=== PATIENT | female | born 1965 | race African-American/Black ===

== ENCOUNTER 2016-10-04 21:14 | Emergency (ER) | payer OTHER ==
[~2016-10-04 21:14] MED LIST: ALBUAER3 INH; CYCL1TAB29 PO; GABA100C4 PO; HYDR-4107 PO; LISI20TA PO; PRED20 PO; VENTAER INH; ZITHTAB PO
[2016-10-04 21:19] VITALS: BP 182/84; PULSE 128; RESP 24; TEMP 99.8; O2SAT 99
== END 2016-10-04 21:50 | disposition left against medical advice (07) ==
LOC: NED 21:14
DX: F41.9 Anxiety disorder, unspecified (principal)

== ENCOUNTER 2017-01-30 17:44 | Emergency (ER) | payer OTHER ==
[~2017-01-30] VITALS: Ht 157.5 cm; Wt 109.0 kg
[2017-01-30 17:48] VITALS: BP 156/86; PULSE 94; RESP 14; TEMP 98.2; O2SAT 98
--- NOTE | 2017-01-30 18:17 | PD ---
Physical Exam Date Seen by Provider: Jan 30, 2017 Time Seen by Provider: 18:16 Narrative 51 yo female here for abscesses. History of hydradenitis. Has had I&D before. tried to see PCP but they couldnt fit her in. Pain is 7/10. Has abscess. No fevers, chills or sweats. Vitals stable in triage. Awaiting bed placement. Data Data Last Documented VS Vital Signs Date Time Temp Pulse Resp B/P (MAP) Pulse Ox O2 Delivery O2 Flow Rate FiO2 01/30/17 17:48 98.2 94 14 156/86 (109) 98 MDM Medical Record Reviewed: Yes Supervised Visit with GULSHAN: Dane Joseph Jan 30, 2017 18:17
[2017-01-30] MEDS ORDERED: CLINDAMYCIN PHOS 600 MG/4 ML VIAL IM ONE (18:30)
[2017-01-30] MEDS ORDERED: CLIN150 PO (18:36)
--- NOTE | 2017-01-30 18:36 | PD ---
HPI Chief Complaint: Skin Problem Time Seen by Provider: 18:27 Travel History International Travel<30 days: No Contact w/Intl Traveler<30days: No Traveled to known affect area: No History of Present Illness HPI 51-year-old Afro-Portuguese female presents the emergency department with recurrent ingrown hair versus abscess to the axilla bilaterally for the past couple of days. Patient has history of hydroadenitis requiring surgical excision. Patient is followed by Dr. Sanabira. She states she went to his office today, but they were unable to fit her in. She states that the one on the right is bigger than the one on the left, but she is trying to "catch them early". She has no fever, chills, or drainage from these areas. Pain is approximately a 7 out of 10. She is allergic to sulfa, vancomycin, and penicillin. PFSH Past Medical History Hx Anticoagulant Therapy: No Anemia: Yes Blood Disorders: Yes (SICKLE CELL TRAIT) Bipolar Disorder: Yes Anxiety: Yes Depression: Yes Heart Rhythm Problems: No Cancer: No Cardiac Catheterization: No Cardiovascular Problems: Yes High Cholesterol: No Chemotherapy: No Congestive Heart Failure: No Cerebrovascular Accident: No Diabetes: No Diminished Hearing: No Endocrine: No Gastrointestinal Disorders: No Genitourinary: No Hypertension: Yes Immune Disorder: No Musculoskeletal: No Neurologic: No Psychiatric: Yes Reproductive: Yes Respiratory: Yes (SLEEP APNEA CPAP) Radiation Therapy: No Renal Failure: No Sleep Apnea: Yes (HOME CPAP) Thyroid Disease: Yes PNEUMOCCOCAL Vaccine (Year): 2 Menopausal: Yes : 15 Para: 6 Miscarriage: 4 : 5 Ovarian Cysts: No Tubal Ligation: Yes Past Surgical History Abdominal Surgery: No AICD: No Arteriovenous Shunt: No Cardiac Surgery: No Coronary Artery Bypass Graft: No Ear Surgery: No Endocrine Surgery: No Eye Surgery: No Genitourinary Surgery: No Gynecologic Surgery: Yes (HYSTERECTOMY) Hysterectomy: Yes Insulin Pump: No Joint Replacement: No Oral Surgery: Yes Pacemaker: No Thoracic Surgery: No Other Surgery: Yes (BENIGN TUMOR LEFT BREAST, BILAT AXILLARY LYMPH NODE REMOVAL ) Social History Alcohol Use: No Tobacco Use: Yes (05/09 PPD) Substance Use: No Allergies-Medications (Allergen,Severity, Reaction): Coded Allergies: Sulfa (Sulfonamide Antibiotics) (Unverified Allergy, Severe, SOB, 01/30/17) penicillin G (Unverified Allergy, Severe, ITCHING/RASH, 01/30/17) vancomycin (Unverified Allergy, Mild, HIVES, 01/30/17) Reported Meds & Prescriptions Reported Meds & Active Scripts Active Ventolin Hfa 18 GM Inh (Albuterol Sulfate) 90 Mcg/Act Aer 1 Puff INH Q4H PRN Zithromax Z-Remigio (Azithromycin) 250 Mg Dspk 250 Mg PO DIRECTED 500 MG (2 tabs) day 1, then 1 tab days 2-5. Prednisone 20 Mg Tab 20 Mg PO DAILY 4 Days Reported Gabapentin 100 Mg Cap 100 Mg PO TID Lisinopril-Hctz 20-12.5 Mg Tab 1 Tab PO DAILY Hydrocodone-Acetaminophen 5-300 Mg Tab 1 Tab PO Q6H PRN Flexeril (Cyclobenzaprine HCl) 10 Mg Tab 10 Mg PO TID Proair Hfa 8.5 GM Inh (Albuterol Sulfate) 90 Mcg/Act Aer 1 Puff INH Q4H PRN 108 mcg/actuation Review of Systems Except as stated in HPI: all other systems reviewed are Neg General / Constitutional: No: Fever Eyes: No: Visual changes HENT: No: Headaches Cardiovascular: No: Chest Pain or Discomfort Respiratory: No: Shortness of Breath Gastrointestinal: No: Abdominal Pain Genitourinary: No: Dysuria Musculoskeletal: No: Pain Skin: Positive Lesions (see history present illness), No Rash Neurologic: No: Weakness Psychiatric: No: Depression Endocrine: No: Polydipsia Hematologic/Lymphatic: No: Easy Bruising Physical Exam Narrative GENERAL: Patient appears in no acute distress. SKIN: Warm and dry. Normal color. Normal turgor. Patient has an approximate Stevinson sized, tender, erythematous, indurated area in the center of the right axilla, and a pea-sized tender indurated lesion in the left axilla. Both of these areas are indurated but do not have obvious abscess or pointing at this time. HEAD: Atraumatic. Normocephalic. EYES: Pupils equal and round. No scleral icterus. No injection or drainage. ENT: No nasal bleeding or discharge. Mucous membranes pink and moist. Pharynx is clear. Airway is patent. NECK: Trachea midline. Supple and nontender. CARDIOVASCULAR: Regular rate and rhythm. RESPIRATORY: No accessory muscle use. Clear to auscultation. Breath sounds equal bilaterally. MUSCULOSKELETAL: Extremities without clubbing, cyanosis, or edema. No obvious deformities. NEUROLOGICAL: Awake and alert. No obvious cranial nerve deficits. Motor grossly within normal limits. Five out of 5 muscle strength in the arms and legs. Normal speech. PSYCHIATRIC: Appropriate mood and affect; insight and judgment normal. Data Data Last Documented VS Vital Signs Date Time Temp Pulse Resp B/P (MAP) Pulse Ox O2 Delivery O2 Flow Rate FiO2 01/30/17 17:48 98.2 94 14 156/86 (109) 98 Orders Orders Clindamycin Inj (Cleocin Inj) (01/30/17 18:30) [facility] Medical Decision Making Medical Screen Exam Complete: Yes Emergency Medical Condition: Yes Medical Record Reviewed: Yes Differential Diagnosis Axillary cellulitis. Hidradenitis. Ingrown hair. Early abscess. Narrative Course Patient is given clindamycin 600 mg IM now. Patient is continued on clindamycin 300 mg 4 times a day 7 days Patient is to continue her normal prescribed medications. Patient is to use hot compresses to the area frequently as discussed. Patient is to follow with her doctor as discussed. Patient can return to emergency department if symptoms worsen as discussed. Diagnosis Primary Impression: Hidradenitis axillaris Referrals: Primary Care Physician call for appointment Patient Instructions: General Instructions, Hidradenitis Suppurativa (ED) Additional Instructions: Patient is given clindamycin 600 mg IM now. Patient is continued on clindamycin 300 mg 4 times a day 7 days Patient is to continue her normal prescribed medications. Patient is to use hot compresses to the area frequently as discussed. Patient is to follow with her doctor as discussed. Patient can return to emergency department if symptoms worsen as discussed. Med/Other Pt SpecificInfo: Prescription(s) given Disposition: 01 DISCHARGE HOME Condition: Stable Deion Lafleur Jan 30, 2017 18:36
== END 2017-01-30 19:24 | disposition home or self-care (01) ==
LOC: NEPK 17:44
DX: L73.2 Hidradenitis suppurativa (principal); I10 Essential (primary) hypertension; D57.3 Sickle-cell trait
CPT/HCPCS: 96372

== ENCOUNTER 2017-06-05 20:55 | Emergency (ER) | payer OTHER ==
[~2017-06-05] VITALS: Ht 157.5 cm; Wt 109.1 kg
[~2017-06-05 20:55] MED LIST changes: +CLIN150 PO; +CYCL10TA PO; -CYCL1TAB29 PO
[2017-06-05 20:56] VITALS: BP 180/90; PULSE 96; RESP 16; TEMP 98.6; O2SAT 98
--- NOTE | 2017-06-05 22:18 | PD ---
HPI Chief Complaint: Musculoskeletal Complaint Time Seen by Provider: 22:05 Travel History International Travel<30 days: No Contact w/Intl Traveler<30days: No Traveled to known affect area: No History of Present Illness HPI 52-year-old black female presents to emergency Department with complaints of a tender lump to the inner aspect of her upper arm which she noticed today. She denies any trauma. No recent illness. She denies any skin lesions or sores. She states that she's had a history of hidradenitis and had surgery done a few years ago and has not had any problems. Symptoms are mild. She denies any breast complaints. History Past Medical Histgory Narrative Medical Hypertension, hidradenitis Tetanus Vaccination: < 5 Years Menopausal: Yes Hx Cancer: No Hx Chemotherapy: No Hx Radiation Therapy: No Past Surgical History Narrative Surgical Excision of the tissue of the arm pits for hidradenitis Social History Alcohol Use: No Tobacco Use: Yes (1/2 PPD) Allergies-Medications (Allergen,Severity, Reaction): Coded Allergies: Sulfa (Sulfonamide Antibiotics) (Unverified Allergy, Severe, SOB, 01/30/17) penicillin G (Unverified Allergy, Severe, ITCHING/RASH, 01/30/17) vancomycin (Unverified Allergy, Mild, HIVES, 01/30/17) Reported Meds & Prescriptions Reported Meds & Active Scripts Active Cleocin (Clindamycin HCl) 150 Mg Cap 300 Mg PO Q6H 7 Days Ventolin Hfa 18 GM Inh (Albuterol Sulfate) 90 Mcg/Act Aer 1 Puff INH Q4H PRN Zithromax Z-Remigio (Azithromycin) 250 Mg Dspk 250 Mg PO DIRECTED 500 MG (2 tabs) day 1, then 1 tab days 2-5. Prednisone 20 Mg Tab 20 Mg PO DAILY 4 Days Reported Gabapentin 100 Mg Cap 100 Mg PO TID Lisinopril-Hctz 20-12.5 Mg Tab 1 Tab PO DAILY Hydrocodone-Acetaminophen 5-300 Mg Tab 1 Tab PO Q6H PRN Flexeril (Cyclobenzaprine HCl) 10 Mg Tab 10 Mg PO TID Proair Hfa 8.5 GM Inh (Albuterol Sulfate) 90 Mcg/Act Aer 1 Puff INH Q4H PRN 108 mcg/actuation Review of Systems Except as stated in HPI: all other systems reviewed are Neg HENT: No: Sore Throat Cardiovascular: No: Chest Pain or Discomfort Respiratory: No: Cough, Shortness of Breath Skin: Positive Lumps (right medial elbow), No Rash, No Itching, No Change in Pigmentation, No Change in nails, No Lesions, No Breast Lumps, No Breast Tenderness, No Breast Swelling Physical Exam Narrative GENERAL: This is a well-nourished, well-developed patient, in no apparent distress. SKIN: No rashes, ecchymoses or lesions. Warm and dry. HEAD: Atraumatic. Normocephalic. EYES: PERRL, EOMI, no discharge or injection. No scleral icterus. EARS: Clear NOSE: Nasal turbinates appear normal. THROAT: Mucosa pink and moist. Airway patent. NECK: Trachea midline. supple, moves head freely. LUNGS: Clear to auscultation. CV: Regular in rhythm. ABDOMEN: Soft nontender. EXT: No clubbing cyanosis or edema. Patient has a tender right epitrochlear lymph node Data Data Last Documented VS Vital Signs Date Time Temp Pulse Resp B/P (MAP) Pulse Ox O2 Delivery O2 Flow Rate FiO2 06/05/17 20:56 98.6 96 16 180/90 (120) 98 Room Air MDM Medical Screen Exam Complete: Yes Emergency Medical Condition: No Differential Diagnosis MDM: High Differential diagnoses: Abscess, folliculitis, cellulitis, lymphangitis, abrasion, contact dermatitis, adenopathy Narrative Course A medical screening exam was performed: At the time of evaluation the presenting medical condition was determined not to be of an emergent nature. The patient was given the option of receiving additional care, but declined. Patient was given options for additional community resources from which to obtain care. The Patient Has Been advised to seek medical attention for their presenting complaint. The patient has been advised to return to the ER at any time if an emergent condition develops. Primary Impression: Encounter for medical screening examination Condition: Stable Huy Olivas Jun 05, 2017 22:18
[2017-06-05 22:24] VITALS: BP 165/88
== END 2017-06-05 22:45 | disposition left against medical advice (07) ==
LOC: NEPK 20:55
DX: Z76.89 Persons encountering health services in other specified circumstances (principal); I10 Essential (primary) hypertension; F17.210 Nicotine dependence, cigarettes, uncomplicated; Z88.0 Allergy status to penicillin; Z88.2 Allergy status to sulfonamides; Z88.1 Allergy status to other antibiotic agents; Z79.899 Other long term (current) drug therapy
CPT/HCPCS: 99281

== ENCOUNTER 2017-10-13 15:47 | Emergency (ER) | payer OTHER ==
[~2017-10-13] VITALS: Ht 157.5 cm; Wt 110.0 kg
[2017-10-13 15:50] VITALS: BP 108/71; PULSE 99; RESP 16; TEMP 98.2; O2SAT 100
[2017-10-13] MEDS ORDERED: SODIUM CHLOR 0.9% 1000 ML INJ 1,000 ML IV ONE ×2 (16:13→18:15)
[2017-10-13] MEDS ORDERED: SODIUM CHLORIDE 0.9% FLUSH 10 ML FLUSH IVF PRN (16:15)
[2017-10-13 16:30] VITALS: O2SAT 98
[2017-10-13 16:40] LABS: AUTOMATED NEUTROPHIL # 4.4 TH/MM3 (1.8-7.7); BASOPHIL # 0.1 TH/MM3 (0-0.2); BASOPHIL % 1.2 % (0.0-2.0); EOSINOPHIL # 0.3 TH/MM3 (0-0.4); EOSINOPHIL % 3.5 % (0.0-4.0); HEMATOCRIT 41.6 % (35.0-46.0); HEMOGLOBIN 13.9 GM/DL (11.6-15.3); LYMPH % 37.3 % (9.0-44.0); LYMPHOCYTE # 3.3 TH/MM3 (1.0-4.8); MEAN CORPUSCULAR HEMOGLOBIN 24.7 PG (27.0-34.0); MEAN CORPUSCULAR HGB CONC 33.4 % (32.0-36.0); MEAN PLATELET VOLUME 9.5 FL (7.0-11.0); MONO % 7.5 % (0.0-8.0); MONOCYTE # 0.7 TH/MM3 (0-0.9); NEUT % 50.5 % (16.0-70.0); PLATELET COUNT 274 TH/MM3 (150-450); RED BLOOD COUNT 5.62 MIL/MM3 (4.00-5.30); RED CELL DISTRIBUTION WIDTH 16.6 % (11.6-17.2); WHITE BLOOD COUNT 8.7 TH/MM3 (4.0-11.0)
[2017-10-13] MEDS ORDERED: METOCLOPRAMIDE HCL 10 MG/2 ML VIAL IVP ONE (16:45)
[2017-10-13] MEDS ORDERED: diphenhydrAMINE HCL 50 MG/ML VIAL IVP ONE (16:45)
[2017-10-13 16:49] VITALS: BP_SYST 85; BP_SYST 88; BP_DIAS 53; BP_DIAS 55; BP_DIAS 56
--- NOTE | 2017-10-13 17:01 | RADRPT ---
EXAM DATE: 10/13/2017 4:56 PM EDT AGE/SEX: 52 years / Female INDICATIONS: Cephalgia today. CLINICAL DATA: This is the patient's initial encounter. Patient reports that signs and symptoms have been present for 1 day and indicates a pain score of 8/10. MEDICAL/SURGICAL HISTORY: Hypertension. Hysterectomy. RADIATION DOSE: 56.35 CTDI (mGy) COMPARISON: No prior exams available for comparison. TECHNIQUE: CT of the head without contrast. Using automated exposure control and adjustment of the mA and/or kV according to patient size, radiation dose was kept as low as reasonably achievable to ob tain optimal diagnostic quality images. FINDINGS: Cerebrum: The ventricles are normal for age. No evidence of midline shift, mass lesion, hemorrhage or acute infarction. No extraaxial fluid collections are seen. Posterior Fossa: The cerebellum and brainstem are intact. The 4th ventricle is midline. The cerebe llopontine angle is unremarkable. Extracranial: The visualized portion of the orbits is intact. Skull: The calvaria is intact. No evidence of skull fracture. CONCLUSION: 1. Negative CT Head non contrast. Electronically signed by: Joel Diallo MD 10/13/2017 5:00 PM EDT
[2017-10-13 17:10] LABS: BICARBONATE 25.4 MEQ/L (21.0-32.0); BLOOD UREA NITROGEN 14 MG/DL (7-18); CALCIUM 9.5 MG/DL (8.5-10.1); CHLORIDE 106 MEQ/L (98-107); CREATININE 1.36 MG/DL (0.50-1.00); GLOMERULAR FILTRATION RATE 49 ML/MIN (>89); GLUCOSE,RANDOM 125 MG/DL (74-106); SODIUM (NA) 141 MEQ/L (136-145); TROPONIN I LESS THAN 0.02 NG/ML (0.02-0.05)
--- NOTE | 2017-10-13 17:45 | RADRPT ---
EXAM DATE: 10/13/2017 4:27 PM EDT AGE/SEX: 52 years / Female INDICATIONS: Dizziness and shortness of breath. CLINICAL DATA: This is the patient's initial encounter. Patient reports that signs and symptoms have been present for 1 day and indicates a pain score of 0/10. MEDICAL/SURGICAL HISTORY: None. None. COMPARISON: [facility] [place], CHEST SINGLE AP, 04/14/2016. . FINDINGS: A single AP view of the chest demonstrates the lungs to be symmetrically aerated without evidence of mass, infiltrate or effusion. The cardiomediastinal contours are unremarkable. Osseous structures a re intact. CONCLUSION: No acute disease. Electronically signed by: Joel Diallo MD 10/13/2017 5:44 PM EDT
[2017-10-13 18:02] VITALS: BP 91/55; PULSE 85; RESP 18; O2SAT 98
[2017-10-13] MEDS ORDERED: KETOROLAC TROMETHAMINE 30 MG/ML (IVP) VIAL IV PUSH ONE (18:15)
[2017-10-13 18:39] LABS: AMORPHOUS SEDIMENT, URINE RARE; BACTERIA, URINE FEW /hpf; BLOOD, URINE NEG (NEG); GLUCOSE,URINE NEG (NEG); HYALINE CAST, URINE 81 /lpf (RARE); KETONE, URINE TRACE mg/dL (NEG); MUCUS URINE FEW /lpf (OCC); NITRITE,URINE NEG (NEG); PH, URINE 5.5 (5.0-8.5); SQUAMOUS EPITHELIAL CELL URINE 11 /hpf (0-5); URINE COLOR YELLOW (YELLW/STRAW); URINE LEUKOCYTE ESTERASE MOD (NEG)
[2017-10-13 18:41] LABS: BILIRUBIN, URINE NEG (NEG)
--- NOTE | 2017-10-13 18:58 | PD ---
HPI Chief Complaint: Dizziness Time Seen by Provider: 16:04 Travel History International Travel<30 days: No Contact w/Intl Traveler<30days: No Traveled to known affect area: No History of Present Illness HPI Patient comes to the emergency department complaining of migraine headache and dizziness. Patient reports migraines she woke up with this morning behind her eyes and radiates to the top of her head. Patient reports leaning forward or standing up up makes the headache worse. Patient reports that she took her migraine medication along with her blood pressure medication and became dizzy approximately 2 hours later. Patient denies any nausea, vomiting, chest pain, or shortness of breath abdominal pain, loss change of bowel bladder, or weakness anywhere. Patient reports this does not feel like her normal headaches but is not the worst headache of her life. Patient reports associated photophobia. PFSH Past Medical History Hx Anticoagulant Therapy: No Anemia: Yes Blood Disorders: Yes (SICKLE CELL TRAIT) Bipolar Disorder: Yes Anxiety: Yes Depression: Yes Heart Rhythm Problems: No Cancer: No Cardiac Catheterization: No Cardiovascular Problems: Yes (HTN) High Cholesterol: No Chemotherapy: No Congestive Heart Failure: No Cerebrovascular Accident: No Diabetes: No Diminished Hearing: No Endocrine: No Gastrointestinal Disorders: No Genitourinary: No Hypertension: Yes Immune Disorder: No Musculoskeletal: No Neurologic: No Psychiatric: Yes Reproductive: Yes Respiratory: Yes (asthma) Radiation Therapy: No Renal Failure: No Sleep Apnea: Yes (HOME CPAP) Thyroid Disease: Yes Tetanus Vaccination: > 5 Years Influenza Vaccination: No PNEUMOCCOCAL Vaccine (Year): 2 ?: Not Menopausal: Yes : 15 Para: 6 Miscarriage: 4 : 5 Ovarian Cysts: No Tubal Ligation: Yes Past Surgical History Abdominal Surgery: No AICD: No Arteriovenous Shunt: No Cardiac Surgery: No Cholecystectomy: Yes Coronary Artery Bypass Graft: No Ear Surgery: No Endocrine Surgery: No Eye Surgery: No Genitourinary Surgery: No Gynecologic Surgery: Yes (HYSTERECTOMY) Hysterectomy: Yes Insulin Pump: No Joint Replacement: No Oral Surgery: Yes Pacemaker: No Thoracic Surgery: No Other Surgery: Yes (BENIGN TUMOR LEFT BREAST, BILAT AXILLARY LYMPH NODE REMOVAL ) Family History Family Myocardial Infarction: Yes (SISTER AGE 54 WITH [place] ) Social History Alcohol Use: No Tobacco Use: Yes (1/2 PPD) Substance Use: No Allergies-Medications (Allergen,Severity, Reaction): Coded Allergies: Sulfa (Sulfonamide Antibiotics) (Unverified Allergy, Severe, SOB, 01/30/17) penicillin G (Unverified Allergy, Severe, ITCHING/RASH, 01/30/17) vancomycin (Unverified Allergy, Mild, HIVES, 01/30/17) Reported Meds & Prescriptions Reported Meds & Active Scripts Active Cleocin (Clindamycin HCl) 150 Mg Cap 300 Mg PO Q6H 7 Days Ventolin Hfa 18 GM Inh (Albuterol Sulfate) 90 Mcg/Act Aer 1 Puff INH Q4H PRN Zithromax Z-Remigio (Azithromycin) 250 Mg Dspk 250 Mg PO DIRECTED 500 MG (2 tabs) day 1, then 1 tab days 2-5. Prednisone 20 Mg Tab 20 Mg PO DAILY 4 Days Reported Gabapentin 100 Mg Cap 100 Mg PO TID Lisinopril-Hctz 20-12.5 Mg Tab 1 Tab PO DAILY Hydrocodone-Acetaminophen 5-300 Mg Tab 1 Tab PO Q6H PRN Flexeril (Cyclobenzaprine HCl) 10 Mg Tab 10 Mg PO TID Proair Hfa 8.5 GM Inh (Albuterol Sulfate) 90 Mcg/Act Aer 1 Puff INH Q4H PRN 108 mcg/actuation Review of Systems Except as stated in HPI: all other systems reviewed are Neg Physical Exam Narrative GENERAL: Well-developed, overly nourished, in no acute distress, and non-ill appearing. SKIN: Focused skin assessment warm and dry. HEAD: Atraumatic. Normocephalic. EYES: Pupils equal and round. EOMI. No scleral icterus. No injection or drainage. ENT: No nasal bleeding or discharge. Mucous membranes pink and moist. NECK: Trachea midline. Supple. No nuclear rigidity. CARDIOVASCULAR: Regular rate and rhythm. No murmur appreciated. RESPIRATORY: No accessory muscle use. No respiratory distress. Clear to auscultation. Breath sounds equal bilaterally. MUSCULOSKELETAL: No obvious deformities. No clubbing. No cyanosis. No edema. Full range of motion. NEUROLOGICAL: Awake and alert. No obvious cranial nerve deficits. Motor grossly within normal limits. Normal speech. No pronator drift. Electromechanical Inspector strength equal bilaterally. Normal gait. Normal finger to nose bilaterally, no dysdiadochokinesia, and normal heel-colon exam bilaterally PSYCHIATRIC: Appropriate mood and affect; insight and judgment normal. Data Data Last Documented VS Vital Signs Date Time Temp Pulse Resp B/P (MAP) Pulse Ox O2 Delivery O2 Flow Rate FiO2 10/13/17 19:41 10/13/17 18:02 85 18 98 Room Air 10/13/17 15:50 98.2 Orders Orders Electrocardiogram (10/13/17 16:13) Basic Metabolic Panel (Bmp) (10/13/17 16:13) Complete Blood Count With Diff (10/13/17 16:13) Magnesium (Mg) (10/13/17 16:13) Ckmb (Isoenzyme) Profile (10/13/17 16:13) Troponin I (10/13/17 16:13) Act Partial Throm Time (Ptt) (10/13/17 16:13) Prothrombin Time / Inr (Pt) (10/13/17 16:13) Urinalysis - C+S If Indicated (10/13/17 16:13) Chest, Single Ap (10/13/17 16:13) Ct Brain W/O Iv Contrast(Rout) (10/13/17 16:13) Ecg Monitoring (10/13/17 16:13) Iv Access Insert/Monitor (10/13/17 16:13) Oximetry (10/13/17 16:13) Sodium Chloride 0.9% Flush (Ns Flush) (10/13/17 16:15) Sodium Chlor 0.9% 1000 Ml Inj (Ns 1000 M (10/13/17 16:13) Orthostatic Vital Signs (10/13/17 16:13) Diphenhydramine Inj (Benadryl Inj) (10/13/17 16:45) Metoclopramide Inj (Reglan Inj) (10/13/17 16:45) CKMB (10/13/17 16:20) CKMB% (10/13/17 16:20) Sodium Chlor 0.9% 1000 Ml Inj (Ns 1000 M (10/13/17 18:15) Ketorolac Inj (Toradol Inj) (10/13/17 18:15) Ed Discharge Order (10/13/17 18:58) Labs Laboratory Tests Test 10/13/17 16:20 10/13/17 17:55 White Blood Count 8.7 TH/MM3 Red Blood Count 5.62 MIL/MM3 Hemoglobin 13.9 GM/DL Hematocrit 41.6 % Mean Corpuscular Volume 74.0 FL Mean Corpuscular Hemoglobin 24.7 PG Mean Corpuscular Hemoglobin Concent 33.4 % Red Cell Distribution Width 16.6 % Platelet Count 274 TH/MM3 Mean Platelet Volume 9.5 FL Neutrophils (%) (Auto) 50.5 % Lymphocytes (%) (Auto) 37.3 % Monocytes (%) (Auto) 7.5 % Eosinophils (%) (Auto) 3.5 % Basophils (%) (Auto) 1.2 % Neutrophils # (Auto) 4.4 TH/MM3 Lymphocytes # (Auto) 3.3 TH/MM3 Monocytes # (Auto) 0.7 TH/MM3 Eosinophils # (Auto) 0.3 TH/MM3 Basophils # (Auto) 0.1 TH/MM3 CBC Comment DIFF FINAL Differential Comment Prothrombin Time 10.0 SEC Prothromb Time International Ratio 1.0 RATIO Activated Partial Thromboplast Time 27.5 SEC Blood Urea Nitrogen 14 MG/DL Creatinine 1.36 MG/DL Random Glucose 125 MG/DL Calcium Level 9.5 MG/DL Magnesium Level 2.0 MG/DL Sodium Level 141 MEQ/L Potassium Level 4.1 MEQ/L Chloride Level 106 MEQ/L Carbon Dioxide Level 25.4 MEQ/L Anion Gap 10 MEQ/L Estimat Glomerular Filtration Rate 49 ML/MIN Total Creatine Kinase 192 U/L Creatine Kinase MB 1.0 NG/ML Troponin I LESS THAN 0.02 NG/ML Urine Color YELLOW Urine Turbidity HAZY Urine pH 5.5 Urine Specific [place] 1.023 Urine Protein 30 mg/dL Urine Glucose (UA) NEG mg/dL Urine Ketones TRACE mg/dL Urine Occult Blood NEG Urine Nitrite NEG Urine Bilirubin NEG Urine Urobilinogen 2.0 MG/DL Urine Leukocyte Esterase MOD Urine RBC 3 /hpf Urine WBC 6 /hpf Urine Squamous Epithelial Cells 11 /hpf Urine Amorphous Sediment RARE Urine Bacteria FEW /hpf Urine Hyaline Casts 81 /lpf Urine Mucus FEW /lpf Microscopic Urinalysis Comment CULT NOT INDICATED MDM Medical Decision Making Medical Screen Exam Complete: Yes Emergency Medical Condition: Yes Interpretation(s) Last Impressions Head CT 10/13/171612 Signed Impressions: CONCLUSION: 1. Negative CT Head non contrast. Chest X-Ray 10/13/171612 Signed Impressions: CONCLUSION: No acute disease. Differential Diagnosis Migraine, CVA, TIA, dehydration, orthostatic hypotension, sinusitis, UTI, vertigo, intracranial hemorrhage, metabolic disturbance Narrative Course Due to patients subjective complaint and presentation, a head CT was performed which was normal and without evidence of blood or mass. The patient looks great , feels better and is in no significant objective discomfort currently. The patient is in no distress and the patients neurological exam is normal, neck is supple and without meningismus. The headache is not consistent with meningitis or infection, nor does it appear consistent with intracranial bleed (SAH etc.), carotid dissection, nor mass by history, examination and evaluation. There is very little clinical evidence to suggest missed hemorrhage on CT and/or sentinel bleed thus an invasive procedure such as a lumbar puncture was not performed. Medication and instructions to rest in a cool dark quite place were discussed with the patient. Also, outpatient follow up was instructed. The patient was instructed to return as needed or if symptoms changed or worsened, fever developed or inability to tolerate fluids. The patient agreed with plan. Patient in no obvious distress upon re-evaluation. All pertinent laboratory/ Radiology result(s) discussed with patient. Discussed patient with Dr. Calvillo prior discharge, who is in agreement with plan of care and disposition. Any questions/concerns in reference to patient diagnosis/ condition discussed and clarified prior to patient's discharge. Reinforced sheer importance of close follow up with patient's primary physician or primary care clinic and/or neurologist. Instructed patient to return to ED immediately, if symptoms return/worsen. Patient showed understanding of above instructions. Further instructions and recommendations were detailed in discharge paperwork. Patient ambulated without difficulty out of ED at discharge. Diagnosis Primary Impression: Migrainous dizziness Patient Instructions: Dizziness (ED), General Instructions, Migraine Headache ( ED) Additional Instructions: Follow-up with your primary care physician and/or neurologist next week for reevaluation. Do not take your 's blood pressure medicine. Return to the emergency department if symptoms get worse. Disposition: 01 DISCHARGE HOME Condition: Stable Jonel Blum Oct 13, 2017 18:58
== END 2017-10-13 19:41 | disposition home or self-care (01) ==
LOC: NEPC 15:47
DX: G43.909 Migraine, unspecified, not intractable, without status migrainosus (principal); F17.200 Nicotine dependence, unspecified, uncomplicated; I10 Essential (primary) hypertension; R06.02 Shortness of breath; Z79.899 Other long term (current) drug therapy
CPT/HCPCS: 70450; 71045; 80048; 81001; 82550; 82552; 83735; 84484; 85025; 85610; 85730; 96361; 96374; 96375; 99285; J1200; J1885; J2765; J7030